=== PATIENT | male | born 1975 | race African-American/Black ===

== ENCOUNTER 2021-05-25 00:17 | Emergency (ER) | payer SELFPAY ==
[~2021-05-25] VITALS: Ht 182.9 cm; Wt 159.0 kg
[2021-05-25 01:29] LABS: BASOPHILS % 0.8 % (0.0-2.0); EOSINOPHILS % 0.5 % (0.0-5.0); HEMATOCRIT. 38.3 % (42.0-52.0); LYMPHOCYTES % 34.7 % (20.0-50.0); MEAN CORPUSCULAR HEMOGLOBIN 32.5 pg (28.0-32.0); MEAN CORPUSCULAR VOLUME 95.4 fL (80.0-94.0); MEAN PLATELET VOLUME 9.2 fl (7.4-10.4); MONOCYTES % 11.6 % (2.0-8.0); NEUTROPHILS % 52.4 % (40.0-76.0); PLATELET 250 x1000/uL (130-400); RED BLOOD CELL COUNT 4.01 mill/uL (4.7-6.1); RED CELL DISTRIBUTION WIDTH 13.1 % (11.6-14.6)
[2021-05-25 01:34] LABS: CHLORIDE 106 mEq/L (98-107)
[2021-05-25 04:00] VITALS: BP 138/85
== END 2021-05-25 04:45 | disposition home or self-care (01) ==
LOC: ER 00:17
DX: R07.89 Other chest pain (principal); I10 Essential (primary) hypertension; I48.91 Unspecified atrial fibrillation; R06.02 Shortness of breath; R11.0 Nausea; R00.2 Palpitations
CPT/HCPCS: 36415; 71045; 80053; 84484; 85025; 99284